=== PATIENT | female | born 1995 | race Caucasian/White ===

== ENCOUNTER → 2023-05-09 | Outpatient (CLI) | payer OTHER, SELFPAY ==
[2023-05-09 14:50] LABS: Absolute Lymphocyte Count 1.85 X10^3/uL (0.83-4.51); Absolute Neutrophil Count 9.5 X10^3/uL (2.0-7.7); Basophil# 0.05 X10^3/uL; Basophil% 0.4 % (0-1); Eosinophil# 0.06 X10^3/uL; Eosinophils% 0.5 % (0-5); Hematocrit 36.4 % (37-47); Hemoglobin 12.4 g/dL (12.0-15.0); Lymphocyte # 1.85 X10^3/ul (0.83-4.51); Lymphocyte % 15.4 % (19-41); Mean Corp Hgb Conc 34.1 g/dL (32-36); Mean Corpuscular Hgb 30.8 pg (27.0-32.0); Mean Corpuscular Volume 90.5 fL (81-99); Mean Platelet Vol. 9.6 fl (6.2-12.0); Monocyte# 0.57 X10^3/uL; Monocyte% 4.7 % (0-10); NRBC Flagged by Analyzer 0 % (0-5); Neutrophil # 9.45 X10^3/uL (2.7-7.7); Neutrophil % 78.6 % (47-70); Platelet Count 367 K/mm3 (150-450); RBC Distribution Width CV 12.5 % (11.6-14.6); RBC Distribution Width SD 41.1 fl (35.1-43.9); Red Blood Count 4.02 M/mm3 (4.2-5.4)
[2023-05-09 16:39] LABS: HIV - WCH Non-Reactive (Nonreactive); Hepatitis B Surface Antigen Non-Reactive (Nonreactive); Hepatitis C Antibody Non-Reactive (Nonreactive); Rubella IgG Reactive (Nonreactive); Syphilis Antibodies Non-reactive
[2023-05-11 22:07] LABS: Chlamydia By Nucleic Acid AMP Negative (Negative); Gonococcus By Nucleic Acid AMP Negative (Negative)
[2023-05-12 21:01] LABS: HPV Reflexed? NOT INDICATED
== END | disposition home or self-care (01) ==
PROVIDERS: Referring Provider Obstetrics & Gynecology; Visit Provider Obstetrics & Gynecology
DX: Z34.90 Encounter for supervision of normal pregnancy, unspecified, unspecified trimester (principal)
CPT/HCPCS: 36415; 85025; 86703; 86762; 86780; 86803; 86850; 86900; 86901; 87086; 87088; 87340; 87491; 87591; 88175; G0145

== ENCOUNTER → 2023-06-28 | Outpatient (CLI) | payer OTHER, SELFPAY ==
[2023-06-28 17:32] LABS: Mucous, Urine 0 SEEN /hpf (<or=2+); Red Blood Cells-Urine 0 SEEN /hpf (0-5); White Blood Cells 0 SEEN /hpf (0-5)
[2023-06-28 18:13] LABS: Color, Urine Yellow (Yellow); Glucose, Dipstick Normal (Normal); Leukocyte Esterase-Dipstick Negative /ul (Negative); Nitrite-Dipstick Negative (Negative); Occult Blood-Urine Negative /ul (Negative); Protein-Dipstick 15 mg/dl (Negative); Urine Bilirubin Dipstick Negative (Negative); Urine Clarity Clear (Clear); Urine Urobilinogen Normal (Normal); Urine pH 6.5 (5.0 - 8.0)
[2023-06-28 18:40] LABS: Ketone-Dipstick 150 mg/dl (Negative)
[2023-06-28 18:49] LABS: Bacteria 2+ /hpf (None Seen); Squamous Epithelial Cells - UA 0-5 SEEN /hpf (5-10)
== END | disposition home or self-care (01) ==
PROVIDERS: Visit Provider Advanced Practice Midwife
DX: M54.9 Dorsalgia, unspecified (principal)
CPT/HCPCS: 81001; 87086

== ENCOUNTER 2023-06-29 18:23 | Emergency (ER) | payer OTHER, SELFPAY ==
[2023-06-29 18:26] VITALS: BP 120/79; PULSE 81; RESP 18; TEMP 36.6; O2SAT 99; BMI 26.9
--- NOTE | 2023-06-29 18:53 | ED.VIS.GI ---
HPI HPI - GI History of Present Illness Chief Complaint: Abd Pain Informant: patient and spouse/S.O. Narrative Narrative: Called today from [facility] to go to the ED for fluid hydration and work-up. Vomiting diarrhea started Tuesday diarrhea stopped Tuesday persistent vomiting. She is a G2, P1 15 weeks gestation. Abdominal cramping. No recent antibiotics. No fevers or chills. No urinary symptoms. She saw [facility] yesterday, Shirley Pérez, started on Zofran had urine tested called today having ketones and sent to the ED. She had 1 emesis today status post Zofran prior to arrival. No hematemesis no bloody stools. She reports has had intermittent nausea throughout however no significant emesis. Denies alcohol tobacco or illicit drug use. She is on vitamins and as needed Zofran at this time. Prior similar symptoms: No PFSH PFSH Medical History Family history of breast cancer Testing for genetic disease carrier status Vaginal delivery Home Medications multivit-min no.71-iron fum 28 mg-folate no.1 1 mg-dha 300 mg capsule (PNV-[place]) cap PO 04/29/23 [History Last Taken Unknown] ondansetron 4 mg disintegrating tablet 4 mg PO Q6H #14 tabs 06/28/23 [Rx Last Taken Unknown] metoclopramide HCl 5 mg tablet (Reglan) 5 mg PO Q6H PRN nausea and vomiting #10 tabs 06/29/23 [Rx Last Taken Unknown] nitrofurantoin monohydrate/macrocrystals 100 mg capsule 100 mg PO Q12 #10 CAPSULES 06/29/23 [Rx Last Taken Unknown] Allergy/AdvReac Type Severity Reaction Status Date / Time Penicillins Allergy Unknown PT UNSURE Verified 06/29/23 18:26 OF REACTION Family History Grandmother Breast cancer, Onset Age: 75 Maternal Surgical History [place] teeth extracted Social History adopted: No household members: spouse and children number of children: 1 current occupational status: 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 current occupational exposures/hazards: No pets and animals: No history of recent travel: Yes ([place]) out of state: Yes out of country: No sexually active: Yes Smoking Status: Never smoker alcohol intake: never substance use type: does not use well-balanced diet: daily or most days caffeine: Yes Type: coffee Number of servings: 1 eating out: 1-3 times/week during the past year weight has: remained stable what type of physical activity do you participate in: walking, yoga and other details: Moderate FELIPE frequency: 3-4 times per week duration: 15-30 minutes/day fito/druze: Scientologist seatbelt use: always do you feel safe at home: Yes additional social history: Noel- ROS ROS ED Constitutional Constitutional ED: Denies chills, fever(s) or sweats Eyes Eyes: Denies change in vision ENT ENT ED: Denies dysphagia or sore throat Cardiovascular Cardiovascular: Denies chest pain, leg edema, palpitations or racing heartbeat Respiratory/Chest Respiratory/Chest: Denies cough, dyspnea or dyspnea on exertion Gastrointestinal Gastrointestinal: Reports abdominal pain, nausea and vomiting; Denies diarrhea Genitourinary Genitourinary ED: Denies dysuria, hematuria or urinary frequency Musculoskeletal Musculoskeletal: Denies back pain, extremity pain or neck pain Integumentary Denies rash or wounds Neurologic Neurologic: Denies headache(s), paresthesias or weakness EXAM Physical Exam Const Vital Signs: 06/29/23 18:26 06/29/23 19:56 06/29/23 21:00 Temperature 98 F Temperature Source Temporal Pulse Rate 81 81 72 Respiratory Rate 18 14 14 Blood Pressure 120/79 108/69 115/67 Blood Pressure Mean 92 82 83 Pulse Ox 99 100 100 Oxygen Delivery Method Room Air Room Air Room Air 06/29/23 21:36 06/29/23 22:42 Temperature 97.5 F L Temperature Source Pulse Rate 79 71 Respiratory Rate 16 14 Blood Pressure 114/64 120/63 Blood Pressure Mean 80 Pulse Ox 100 100 Oxygen Delivery Method Room Air Positive well nourished and well developed General Appearance ED: well developed and NAD HEENT HEENT Narrative: Mild dry mucosal membranes normocephalic and atraumatic Eyes PERRL, EOMs intact bilaterally and conjunctivae normal General Eye ED: Yes normal appearance of both eyes Neck no lymphadenopathy and supple General: Negative for tenderness Chest Wall Chest: Negative for tenderness Resp normal respiratory effort and normal air movement Effort and Inspection: symmetric chest movement; Negative for respiratory distress Cardio regular rate, regular rhythm and no murmurs Peripheral Pulses: pulses 2+ throughout GI GI Narrative: Gravid abdomen, mild tenderness lower abdomen there is no guarding or rebound. Negative Stevens's McBurney's tenderness. Palpation: Negative for guarding or rebound tenderness present Back/Spine no CVA tenderness and no thoracic nor lumbar tenderness Extremity normal to inspection General Extremety ED: Negative for edema or tenderness General Extremity: Negative for edema Neuro oriented x3 and no sensory deficits noted Sensorium / Orientation: awake and alert Skin no rashes or lesions noted and no wounds MDM MDM MDM Narrative Medical decision making narrative: Interventions / MDM: Differential diagnosis: Viral syndrome, hyperemesis gravidarum, Diagnosis considered but do not suspect: No clinical appendicitis or cholecystitis. Diarrhea improved, lower suspicion for C. difficile. My EKG interpretation: N/A Imaging independently reviewed and interpreted by myself: N/A External documents reviewed: N/A Test considered but not ordered:N/A ED course: Patient persistent vomiting diarrhea improved. IV established with 2 L of fluids given IV Reglan. Electrolytes evaluated creatinine 0.67 sodium 132. Urine was positive for ketones. heart tones performed and obtained on bedside ultrasound 151. There is positive movement. Clinically feeling better on reexamination. Prescription for Reglan additional Zofran to use as needed. Urine also noted leukocytes culture sent. UTI in she is started on Macrobid for 5 days. Outpatient follow-up with her OB. Return precautions. Re-evaluation: stable Disposition discussed with patient/family/significant other: Patient and significant other Case discussed with consulting clinician: N/A This note was generated with Smart Sparrow dictation software. It may contain incorrect words, spelling, and punctuation that were not noted in checking the note before signing. Lab Data Attestation: I reviewed the patient's lab results. Labs: Laboratory Results - last 24 hr 06/29/23 06/29/23 19:13 20:07 Sodium 132 L Potassium 3.6 Chloride 105 Carbon Dioxide 20.0 L Anion Gap 7 BUN 6 L Creatinine 0.60 Estim Creat Clear Calc 126.73 Est GFR (MDRD) Af Amer 155 Est GFR (MDRD) Non-Af 128 BUN/Creatinine Ratio 10.1 Glucose 98 Calcium 8.5 Urine Color Yellow Urine Clarity Clear Urine pH 6.0 Ur Specific [place] 1.020 Urine Protein 30 H Urine Glucose (UA) Normal Urine Ketones 150 A* Urine Occult Blood 10 H Urine Nitrite Negative Urine Bilirubin Negative Urine Urobilinogen 1 H Ur Leukocyte Esterase 25 H Urine RBC 0 SEEN Urine WBC 0 SEEN Ur Squamous Epith Cells 0-5 SEEN Urine Bacteria 0 SEEN Urine Mucus 0 SEEN Discharge Plan Triage Chief Complaint: Abd Pain ED Provider: Kain Champagne Dx/Rx/DC Orders Clinical Impression: UTI in , Second trimester , Nausea & vomiting, Dehydration Instructions: 2nd Trimester Changes, ED Dehydration (Adult), ED Vomiting (Adult) Prescriptions: New nitrofurantoin monohyd/m-cryst [nitrofurantoin monohyd/m-cryst] 100 mg capsule 100 mg PO Q12 Qty: 10 0RF metoclopramide HCl [Reglan] 5 mg tablet 5 mg PO Q6H PRN (Reason: nausea and vomiting) Qty: 10 0RF No Action PNV-[place] 28-1-300 mg capsule PO ondansetron 4 mg tablet,disintegrating 4 mg PO Q6H Qty: 14 0RF Primary Care Provider: Care Physician,No Primary Referrals: Care Physician,No Primary [Primary Care Provider] - Activity Restrictions/Additional Instructions: Urine with no Normal renal function. Sodium 132 potassium 3.6. You are given 2 L of IV fluids. Symptoms improved. Urine with slight infection culture sent. Take antibiotic as prescribed. Follow-up with your OB team. Return if worsening symptoms. Disposition Disposition: Home, Self Care Discharge Date/Time: 06/29/23 22:46
[2023-06-29] MEDS: 0.9% Normal Saline 1,000 ML 999 ML IV ×2 (19:13→20:31)
[2023-06-29] MEDS: Metoclopramide 10 MG/2 ML Vial 5 MG IV (19:14)
[2023-06-29 19:39] LABS: Anion Gap 7 (5-15); BUN 6 mg/dL (7-18); BUN/Creat Ratio 10.1 RATIO (10-20); Calcium,Total 8.5 mg/dL (8.5-10.1); Chloride 105 mmol/L (98-107); EST Glomerular Filtration Rate 128 mL/min (>60); Est Glom Filt Rate - Afr Amer 155 mL/min (>60); Estimated Creatinine Clearance 126.73 ml/min; Glucose 98 mg/dL (74-106); Potassium 3.6 mmol/L (3.5-5.1); Sodium Level 132 mmol/L (136-145)
[2023-06-29 19:56] VITALS: BP 108/69; PULSE 81; RESP 14; O2SAT 100
[2023-06-29 20:15] LABS: Bacteria 0 SEEN /hpf (None Seen); Mucous, Urine 0 SEEN /hpf (<or=2+); Red Blood Cells-Urine 0 SEEN /hpf (0-5); White Blood Cells 0 SEEN /hpf (0-5)
[2023-06-29 20:19] LABS: Color, Urine Yellow (Yellow); Glucose, Dipstick Normal (Normal); Leukocyte Esterase-Dipstick 25 /ul (Negative); Nitrite-Dipstick Negative (Negative); Occult Blood-Urine 10 /ul (Negative); Protein-Dipstick 30 mg/dl (Negative); Urine Bilirubin Dipstick Negative (Negative); Urine Clarity Clear (Clear); Urine Urobilinogen 1 mg/dl (Normal)
[2023-06-29 20:37] LABS: Ketone-Dipstick 150 mg/dl (Negative)
[2023-06-29 20:38] LABS: Squamous Epithelial Cells - UA 0-5 SEEN /hpf (5-10)
[2023-06-29 21:00] VITALS: BP 115/67; PULSE 72; RESP 14; O2SAT 100
[2023-06-29 21:36] VITALS: BP 114/64; PULSE 79; RESP 16; O2SAT 100
[2023-06-29 22:42] VITALS: BP 120/63; PULSE 71; RESP 14; TEMP 36.4; O2SAT 100
[2023-06-29] MEDS: Nitrofurantoin Macrocrystals 100 MG Capsule PO (22:44)
== END 2023-06-29 22:46 | disposition home or self-care (01) ==
PROVIDERS: Emergency Provider Emergency Medicine; Visit Provider Emergency Medicine
DX: O23.42 Unspecified infection of urinary tract in pregnancy, second trimester (principal); E86.0 Dehydration; O99.282 Endocrine, nutritional and metabolic diseases complicating pregnancy, second trimester; R11.2 Nausea with vomiting, unspecified; Z3A.15 15 weeks gestation of pregnancy
CPT/HCPCS: 80048; 81001; 87086; 96361; 96374; 99284; J7030; A4216

== ENCOUNTER → 2023-09-26 | Outpatient (CLI) | payer OTHER, SELFPAY ==
[2023-09-26 09:34] LABS: Absolute Lymphocyte Count 1.45 X10^3/uL (0.83-4.51); Absolute Neutrophil Count 7.5 X10^3/uL (2.0-7.7); Basophil# 0.02 X10^3/uL; Basophil% 0.2 % (0-1); Eosinophil# 0.06 X10^3/uL; Eosinophils% 0.6 % (0-5); Hematocrit 34.5 % (37-47); Hemoglobin 11.3 g/dL (12.0-15.0); Lymphocyte # 1.45 X10^3/ul (0.83-4.51); Lymphocyte % 15.1 % (19-41); Mean Corp Hgb Conc 32.8 g/dL (32-36); Mean Corpuscular Volume 94.5 fL (81-99); Monocyte# 0.53 X10^3/uL; Monocyte% 5.5 % (0-10); NRBC Flagged by Analyzer 0 % (0-5); Neutrophil # 7.49 X10^3/uL (2.7-7.7); Neutrophil % 77.9 % (47-70); Platelet Count 296 K/mm3 (150-450); RBC Distribution Width CV 12.6 % (11.6-14.6); RBC Distribution Width SD 43.9 fl (35.1-43.9); Red Blood Count 3.65 M/mm3 (4.2-5.4); White Blood Count 9.6 K/mm3 (4.4-11.0)
[2023-09-26 09:40] LABS: Glucose Challenge Gest 1H 50g 90 mg/dL (70-140)
[2023-09-26 10:36] LABS: HIV - WCH Non-Reactive (Nonreactive); Syphilis Antibodies Non-reactive
== END | disposition home or self-care (01) ==
LOC: PAVLAB 09:07
PROVIDERS: Referring Provider Registered Nurse; Visit Provider Registered Nurse
DX: O09.90 Supervision of high risk pregnancy, unspecified, unspecified trimester (principal); Z13.1 Encounter for screening for diabetes mellitus; Z3A.00 Weeks of gestation of pregnancy not specified
CPT/HCPCS: 36415; 82950; 85025; 86703; 86780

== ENCOUNTER → 2023-11-21 | Outpatient (CLI) | payer OTHER, SELFPAY ==
[2023-11-21 18:15] LABS: Group B Strep DNA By PCR Negative (Negative); Internal Control PASS; Probe Check PASS; Specimen Processing Control PASS
== END | disposition home or self-care (01) ==
PROVIDERS: Referring Provider Registered Nurse; Visit Provider Registered Nurse
DX: Z34.90 Encounter for supervision of normal pregnancy, unspecified, unspecified trimester (principal)
CPT/HCPCS: 87081; 87653

== ENCOUNTER 2023-12-15 09:15 | Inpatient (IN) | payer OTHER, SELFPAY ==
[2023-12-15] VITALS (36 sets, daily range): BP systolic 119–139; BP diastolic 58–79; PULSE 72–112; RESP 16; TEMP 36.6–37.2; O2SAT 92–100; BMI 31.6
--- NOTE | 2023-12-15 09:29 | HP.PCM.OB_ITS ---
HPI - General General Date of Admission: 12/15/23 HPI Narrative ANA HOLCOMB, is a 28 F who presents IAL 4 cm dilated regular ctx bloody show Maternal Data Information VIELKA Calculator Estimated Delivery Date Method Current WG Current Estimate 12/17/23 LMP (Certain) 39w 5d PFSH PFSH Medical History Family history of breast cancer Testing for genetic disease carrier status Vaginal delivery Home Medications multivit-min no.71-iron fum 28 mg-folate no.1 1 mg-dha 300 mg capsule (PNV- [place]) 1 cap PO 04/29/23 [History Last Taken 12/14/23 09:00 1 cap] polymyxin B sulfate 10,000 unit-trimethoprim 1 mg/mL eye drops 1 drp RIGHT EYE Q4H 12/15/23 [History Last Taken 12/15/23 07:30 1 drp] Allergy/AdvReac Type Severity Reaction Status Date / Time Penicillins Allergy Unknown PT UNSURE Verified 12/15/23 09:06 OF REACTION Family History Grandmother Breast cancer, Onset Age: 75 Maternal Surgical History [place] teeth extracted Social History adopted: No household members: spouse and children number of children: 1 current occupational status: 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 current occupational exposures/hazards: No pets and animals: No history of recent travel: Yes ([place]) out of state: Yes out of country: No sexually active: Yes Smoking Status: Never smoker alcohol intake: never substance use type: does not use well-balanced diet: daily or most days caffeine: Yes Type: coffee Number of servings: 1 eating out: 1-3 times/week during the past year weight has: remained stable what type of physical activity do you participate in: walking, yoga and other details: Moderate FELIPE frequency: 3-4 times per week duration: 15-30 minutes/day fito/restorationist: Amish seatbelt use: always do you feel safe at home: Yes additional social history: Noel- History 2 Elective abortions Hx Para 1 Spontaneous abortions Hx # Term Pregnancies Ectopic pregnancies Hx # Pregnancies Multiple births # of living children 1 Past Pregnancies Del. Date Name GA/Weeks Outcome Route Bth Weight Gen Labor Lgth Anesthesia Del Locatn Provider FOB 02/25/21 [facility] 39 live - full term 8#15oz Male epidural [facility] Trice Cohen Visit Details Expected Delivery Route/Plan Labor Preferences- CB/BF classes: No labor support person: Noel labor intervention preferences: [] pain management options preferred: limited if possible cut cord/dad catch: yes : yes PP control planned: discussed discussed possible routes of delivery and associated risks: [] special requests: [] Plans Covid status: [] Flu vaccine: given Tdap vaccine: given Rhogam: NA LARC form signed: yes Problem list reviewed and updated with the most current plan of care details and appropriate orders placed. Relevant counseling for the gestational age provided. Continue routine care and follow up unless otherwise noted in visit notes/problem list details OB Flowsheet Initial Weight: Not Recorded Date -?-?-?-?-?-?-?-?-?-?-?-?- EGA Weight BP Urine Prot -?-?-?-?-?-?-?-?-?-?-?-?- Glucose FHR FuHt Pres Dilation -?-?-?-?-?-?-?-?-?-?-?-?- Effaced St Visit Note 05/09/23 -?-?-?-?-?-?-?-?-?-?-?-?- 8w 2d 162 lb 113/63 Negative -?-?-?-?-?-?-?-?-?-?-?-?- Negative 170 -?-?-?-?-?-?-?-?-?-?-?-?- SM- CRL 2 cm con s with LMP 06/10/23 -?-?-?-?-?-?-?-?-?-?-?-?- 12w 6d 166 lb 6 oz 125/69 -?-?-?-?-?-?-?-?-?-?-?-?- 155 -?-?-?-?-?-?-?-?-?-?-?-?- LC- no vb/crampi ng. normal nob labs. declined nipt. discussed and declines afp. anatomy scheduled. 06/28/23 -?-?-?-?-?-?-?-?-?-?-?-?- 15w 3d 163 lb 115/83 115/83 Negative -?-?-?-?-?-?-?-?-?-?-?-?- Negative -?-?-?-?-?-?-?-?-?-?-?-?- KW-no vb/crampin g. FHT on handheld US. N/V/D starting on sat after possible food poisoning/Viral GI exposure. Still having N/V. Able to keep fluids down. Recommended fluids in ER in 2 days if sx persist or worsens. 07/04/23 -?-?-?-?-?-?-?-?-?-?-?-?- 16w 2d 165 lb 8 oz 116/78 Nega tive -?-?-?-?-?-?-?-?-?-?-?-?- Negative 148 -?-?-?-?-?-?-?-?-?-?-?-?- MH-No Vb. Thinks feels flutters. Feeling much improved since IV fluids last week and nausea improved. 08/05/23 -?-?-?-?-?-?-?-?-?-?-?-?- 20w 6d 173 lb 117/76 Negative -?-?-?-?-?-?-?-?-?-?-?-?- Negative 163 -?-?-?-?-?-?-?-?-?-?-?-?- JV- no lof, vagi nal bleeding, or cramping. pt has echo scheduled for small pericardial effusion. pt desires flu vaccine today. 08/29/23 -?-?-?-?-?-?-?-?-?-?-?-?- 24w 2d 181 lb 8 oz 130/78 Nega tive -?-?-?-?-?-?-?-?-?-?-?-?- Negative 155 25 -?-?-?-?-?-?-?-?-?-?-?-?- LC- no lof/vb/ct x. good fm. per pt baby with small VSD, awaiting cardiology report. 09/26/23 -?-?-?-?-?-?-?-?-?-?-?-?- 28w 2d 185 lb 2 oz 118/68 Nega tive -?-?-?-?-?-?-?-?-?-?-?-?- Negative 148 28 -?-?-?-?-?-?-?-?-?-?-?-?- MH-No Vb, LOF. G ood FM. Next echo is 10/26. Larc, tdap. Nl 28 wk labs. 10/14/23 -?-?-?-?-?-?-?-?-?-?-?-?- 30w 6d 187 lb 6 oz 114/75 Nega tive -?-?-?-?-?-?-?-?-?-?-?-?- Negative 137 32 -?-?-?-?-?-?-?-?-?-?-?-?- JV- has another follow up on 10/[address] Glass. will know for sure after this visit if can deliver in [place]. 10/24/23 -?-?-?-?-?-?-?-?-?-?-?-?- 32w 2d 189 lb 129/65 Negative -?-?-?-?-?-?-?-?-?-?-?-?- Negative 135 33 -?-?-?-?-?-?-?-?-?-?-?-?- JV- no complaint s. has appt with peds cardio on tuesday. 11/11/23 -?-?-?-?-?-?-?-?-?-?-?-?- 34w 6d 193 lb 4 oz 124/85 Nega tive -?-?-?-?-?-?-?-?-?-?-?-?- Negative 145 35 -?-?-?-?-?-?-?-?-?-?-?-?- LC- no vb/ctx/lo f. good fm. no complaints. peds without concerns for delivery at [facility]. to have f/u appt at 3months of age. 11/21/23 -?-?-?-?-?-?-?-?-?--?-?-?- 36w 2d 194 lb 115/82 Negative -?-?-?-?-?-?-?-?-?-?-?-?- Negative 135 36 -?-?-?-?-?-?-?-?-?-?-?-?- LC- no complaint s. no lof/vb/ctx. good fm. gbs obtained today. 11/28/23 -?-?-?-?-?-?-?-?-?-?-?-?- 37w 2d 193 lb 6 oz 122/85 Nega tive -?-?-?-?-?-?-?-?-?-?-?-?- Negative 145 37 Cephalic -?-?-?-?-?-?-?-?-?-?-?-?- JV- no lof, vagi nal bleeding, or dec fm. no complaints. declines exam. was 1 cm last week. 12/05/23 -?-?-?-?-?-?-?-?-?-?-?-?- 38w 2d 195 lb 2 oz 116/81 Nega tive -?-?-?-?-?-?-?-?-?-?-?-?- Negative 150 38 Cephalic 1 -?-?-?-?-?-?-?-?-?-?-?-?- 40 0 LC- no vb/ lof/ctx. good fm. no concerns. 12/12/23 -?-?-?-?-?-?-?-?-?-?-?-?- 39w 2d 195 lb 135/88 Trace -?-?-?-?-?-?-?-?-?-?-?-?- Negative 148 39 Cephalic 2 -?-?-?-?-?-?-?-?-?-?-?-?- 40 0 LC- no vb/ consistent ctx/lof. good fm. membranes swept today 12/15/23 -?-?-?-?-?-?-?-?-?-?-?-?- 39w 5d 195 lb 15.855 oz 139/79 -?-?-?-?-?-?-?-?-?-?-?-?- -?-?-?-?-?-?-?-?-?-?-?-?- NST FHR Rate Baby A Baseline: 140 Variability:: Moderate Accelerations:: 15 x 15 Decelerations:: None NST Reactive:: Yes FHR Category:: Category I Uterine Activity:: q3-5 ROS Constitutional Constitutional: Reports systems reviewed and no addt'l complaints, except as documented ENT HEENT: Reports systems reviewed and no addt'l complaints, except as documented Cardiovascular Cardiovascular: Reports systems reviewed and no addt'l complaints, except as documented Respiratory/Chest Respiratory/Chest: Reports systems reviewed and no addt'l complaints, except as documented Gastrointestinal Gastrointestinal: Reports systems reviewed and no addt'l complaints, except as documented and nausea; Denies abdominal pain Genitourinary Genitourinary: Reports systems reviewed and no addt'l complaints, except as documented, contractions Details: present and frequency (regular ) and movement Details: present Musculoskeletal Musculoskeletal: Reports systems reviewed and no addt'l complaints, except as documented Integumentary Integumentary: Reports as per HPI Neurologic Neurologic: Reports systems reviewed and no addt'l complaints, except as documented Endocrine Endocrinology: Reports systems reviewed and no addt'l complaints, except as documented Vital Signs Vital Signs Vital Signs: 12/15/23 09:22 12/15/23 09:22 12/15/23 09:24 Pulse Rate 79 78 Blood Pressure 139/79 H BP Systolic 139 BP Diastolic 79 Pulse Ox 12/15/23 09:24 12/15/23 09:24 12/15/23 09:24 Pulse Rate 85 Blood Pressure BP Systolic BP Diastolic Pulse Ox 92 100 Weight Weight: 195 lb 15.855 oz Body Mass Index (BMI) 31.6 Physical Exam Const alert, oriented x3 and healthy appearing Constitutional Narrative: uncomfortable with contractions HEENT normocephalic and moist oral mucous membranes Head and Scalp: atraumatic Neck full ROM, no lymphadenopathy, supple and thyroid normal General: trachea midline Thyroid: thyroid normal Lymph Lymphatic: no lymphadenopathy noted Chest inspection of chest normal Resp normal respiratory effort Cardio regular rate GI normal to inspection, nondistended, normoactive bowel sounds, soft to palpation and non-tender Inspection: gravid external exam normal Bimanual Exam - Vag & Uterus: uterus non-tender Manual OB Exam: estimated gestational size appropriate, presentation cephalic, dilated, effaced and station Extremity normal to inspection General Extremity: Negative for edema Skin no rashes or lesions noted Neuro deep tendon reflexes 2+ bilaterally Motor Exam: strength 5/5 throughout and clonus absent Psych mental status grossly normal Labs Labs Labs: Blood Type A POSITIVE Antibody Screen NEGATIVE Hct 37.8 % (37-47) Hgb 12.6 g/dL (12.0-15.0) Pap Smear Negative Syphilis Total Ab Non-reactive Rubella IgG Antibody Reactive (Nonreactive) Hep Bs Antigen Non-Reactive (Nonreactive) Hepatitis C Antibody Non-Reactive (Nonreactive) Chlamydia DNA (OBI) Negative (Negative) N.gonorrhoeae DNA (OBI) Negative (Negative) HIV 1&2 Antibody Non-Reactive (Nonreactive) Glucose 1 Hr 50 gm 90 mg/dL (70-140) Group B Strep DNA Negative (Negative) Assessment & Plan (1) Ventricular septal defect (VSD) of fetus affecting management of : COMMENT: small vsd with small shunting seen, no pericardial effusion, cleared for delivery in ne[place] by MF, faxed report to [facility] and was approved for delivery at [facility] (2) Nausea & vomiting: QUALIFIERS: Vomiting type: unspecified Qualified Code(s): R11.2 - Nausea with vomiting, unspecified COMMENT: improved (3) Supervision of high-risk : QUALIFIERS: Trimester: second trimester Qualified Code(s): O09.92 - Supervision of high risk , unspecified, second trimester COMMENT: PRR , VIELKA 12/17/23, PC Chivo Noel (4) : QUALIFIERS: Weeks of gestation: 39 weeks Qualified Code(s): Z3A.39 - 39 weeks gestation of COMMENT: reviewed genetic & carrier testing. GBS neg. PLAN: Plan Patient presents IAL, plan expectant management for , pitocin/AROM PRN if needed. Pain management: desires epidural. GBS neg. Management of any complications: see a/p details I have reviewed the [facility] and made any clinically relevant updates.
[2023-12-15] MEDS: Lactated Ringers 1,000 ML 200 ML IV (09:50)
[2023-12-15 09:57] LABS: Absolute Lymphocyte Count 1.64 X10^3/uL (0.83-4.51); Absolute Neutrophil Count 8.3 X10^3/uL (2.0-7.7); Basophil# 0.04 X10^3/uL; Basophil% 0.4 % (0-1); Eosinophil# 0.03 X10^3/uL; Eosinophils% 0.3 % (0-5); Hematocrit 37.8 % (37-47); Hemoglobin 12.6 g/dL (12.0-15.0); Lymphocyte # 1.64 X10^3/ul (0.83-4.51); Lymphocyte % 15.4 % (19-41); Mean Corp Hgb Conc 33.3 g/dL (32-36); Mean Corpuscular Hgb 30.7 pg (27.0-32.0); Mean Platelet Vol. 11.5 fl (6.2-12.0); Monocyte# 0.54 X10^3/uL; Monocyte% 5.1 % (0-10); NRBC Flagged by Analyzer 0 % (0-5); Neutrophil # 8.34 X10^3/uL (2.7-7.7); Neutrophil % 78.4 % (47-70); Platelet Count 331 K/mm3 (150-450); RBC Distribution Width CV 13.2 % (11.6-14.6); RBC Distribution Width SD 44.8 fl (35.1-43.9); Red Blood Count 4.11 M/mm3 (4.2-5.4); White Blood Count 10.6 K/mm3 (4.4-11.0)
[2023-12-15] MEDS: LACTATED RINGERS 500 ML 999 ML IV (10:01)
[2023-12-15] MEDS: fentaNYL 100 MCG/2 ML Ampul IV (10:01)
[2023-12-15] MEDS: Oxytocin 10 UNITS/ML Vial IM (10:32)
[2023-12-15] MEDS: Lidocaine 1% (20 ml mdv) 20 ML Vial INFILT (10:40)
--- NOTE | 2023-12-15 10:52 | EX.PCM.OBRPT ---
Assessment & Plan (1) : QUALIFIERS: Weeks of gestation: 39 weeks Qualified Code(s): Z3A.39 - 39 weeks gestation of COMMENT: reviewed genetic & carrier testing. GBS neg. (2) Supervision of high-risk : QUALIFIERS: Trimester: second trimester Qualified Code(s): O09.92 - Supervision of high risk , unspecified, second trimester COMMENT: PRR , VIELKA 12/17/23, PC Chivo Noel (3) Nausea & vomiting: QUALIFIERS: Vomiting type: unspecified Qualified Code(s): R11.2 - Nausea with vomiting, unspecified COMMENT: improved (4) Ventricular septal defect (VSD) of fetus affecting management of : COMMENT: small vsd with small shunting seen, no pericardial effusion, cleared for delivery in ne[place] by MFM, [facility] report to [facility] and was approved for delivery at [facility] Maternal Data Information VIELKA Calculator Estimated Delivery Date Method Current WG Current Estimate 12/17/23 LMP (Certain) 39w 5d Vaginal Delivery Operative Information Date of Procedure: 12/15/23 Pre-Operative Diagnosis: see a/p diagnoses Post-Operative Diagnosis: same Surgery / Procedure Performed: Spontaneous Vaginal Delivery Type of Anesthesia: Local with 1% Lidocaine Special Medications: none Estimated Blood Loss: 300 Fluids Replaced: crystalloid Findings Description of Procedure: Patient began pushing and delivered the head in the BUSTER presentation. The head was delivered atraumatically . The anterior and posterior shoulders delivered without complication followed by the rest of the and the was placed on the maternal abdomen. Delayed cord clamping was employed for approximately 60 seconds. Cord was clamped and cut and gentle traction was applied to the cord and the placenta delivered spontaneously immediately following it was noted to be intact with three-vessel cord. The perineum and vagina were inspected and noted to have a second degree perineal laceration which was repaired in the usual fashion with 3-0 vicryl rapide after injecting with lidocaine . EBL was 300. Patient and infant tolerated delivery well. Amniotic Fluid Description: Clear Placental Delivery Description: Spontaneous Placenta Disposition: [facility] Cord Vessel Description: 3 Vessels Cord Entanglement: None Delayed Cord Clamping: Yes Post Vaginal Delivery Medications Given After Delivery: IV Pitocin Episiotomy Description: None Complication Complications: None Procedures Urinary/Genital [id number]: [id number] Vaginal Delivery [facility]
--- NOTE | 2023-12-15 10:53 | PCM.DC ---
Discharge Instructions Diet Discharge Diet: No restrictions Activity Discharge Activity: Return to Normal Activity, May Not Drive (while taking narcotic pain medications.) and May Shower May resume sexual activity in: 4-6 weeks Dressing / Incision Call your doctor if your incision/area has: Continuous Slow Oozing, Sudden Increased Bleeding, Increased Pain/ Swelling, Increased Redness and Foul Smelling Discharge Follow Up Care Please Follow Up With: Sanjuanita Sánchez MD When: Call [phone] to make an appointment with your doctor in 6 weeks. If you had elevated blood pressure or 4th degree laceration, you will need to be seen in 2 weeks. Test Results: Test results from this visit will be discussed in further detail at your follow-up appointment, if applicable. Discharge Plan Admission Admit Date/Time: 12/15/23 09:15 Attending Provider: Sanjuanita Sánchez Primary Care Provider: Care Physician,Zahra Primary Discharge Orders/Prescriptions Prescriptions: No Action PNV-[place] 28-1-300 mg capsule 1 cap PO polymyxin B sulf-trimethoprim 10,000 unit- 1 mg/mL drops 1 drp RIGHT EYE Q4H Rx Instructions: while awake; do not exceed 6 doses in 24 hours Referrals / Follow Up: Care Physician,No Primary [Primary Care Provider] - Disposition Disposition (needs filled in before D/C Order can be placed): Home, Self Care
[2023-12-15 11:06] LABS: Syphilis Antibodies Non-reactive
[2023-12-15] MEDS: Acetaminophen 500 MG Tablet 1000 MG PO ×2 (12:57→22:08)
[2023-12-15] MEDS: Senna/Docusate Sodium 1 Tablet PO (15:48)
[2023-12-15] MEDS: Naproxen 500 MG Tablet PO (15:49)
[2023-12-16 00:55] VITALS: BP 113/64; PULSE 73; RESP 16; TEMP 36.7
[2023-12-16 04:59] VITALS: BP 113/63; PULSE 65; RESP 16; TEMP 36.7
[2023-12-16 07:31] VITALS: BP 116/77; PULSE 75; RESP 16; TEMP 36.1; O2SAT 98
--- NOTE | 2023-12-16 07:52 | PN.OBGYN_ITS ---
Subjective Subjective Patient doing well without complaints. Tolerating PO. Ambulating and voiding without difficulty. Feeding well. Denies chest pain, shortness of breath, calf pain/swelling, fevers, chills, lightheadedness. Objective Data Objective Data Vital Signs: Vital Signs Temp Pulse Resp BP Pulse Ox O2 Del Method 97.0 F L 75 16 116/77 98 Room Air 12/16/23 07:12/16/23 07:12/16/23 07:12/16/23 07:12/16/23 07:12/16/23 07:31 Oxygen Delivery Method Room Air Weight: 195 lb 15.855 oz Body Mass Index (BMI) 31.6 Intake & Output: Intake and Output for Last 24 Hours 12/14/23 12/15/23 12/16/23 23:59 23:59 23:59 Intake Total 452.92 / 452.92 Output Total 500 / 500 Balance -47.08 / -47.08 Lab / Micro Data Attestation: I reviewed the patient's lab results. 12/15/23 09:45 Labs: Laboratory Results - last 24 hr 12/15/23 09:45: WBC 10.6, RBC 4.11 L, Hgb 12.6, Hct 37.8, MCV 92.0, MCH 30.7, MCHC 33.3, RDW Std Deviation 44.8 H, RDW Coeff of Klaudia 13.2, Plt Count 331, MPV 11.5, Immature Gran % (Auto) 0.400, Neut % (Auto) 78.4 H, Lymph % (Auto) 15.4 L, [place] % (Auto) 5.1, Eos % (Auto) 0.3, Baso % (Auto) 0.4, Absolute Neuts (auto) 8.3 H, Absolute Lymphs (auto) 1.64, Nucleated RBC % 0 12/15/23 09:50: Syphilis Total Ab Non-reactive, Blood Type A POSITIVE, Antibody Screen NEGATIVE ROS Constitutional Constitutional: Reports systems reviewed and no addt'l complaints, except as documented; Denies anorexia or headache(s) Cardiovascular Cardiovascular: Reports systems reviewed and no addt'l complaints, except as documented; Denies dizziness, dyspnea, nausea or tachypnea Respiratory/Chest Respiratory/Chest: Reports systems reviewed and no addt'l complaints, except as documented; Denies cough, dyspnea, shortness of breath at rest or tachypnea Gastrointestinal Gastrointestinal: Reports systems reviewed and no addt'l complaints, except as documented; Denies abdominal pain, constipation or nausea Genitourinary Genitourinary: Reports systems reviewed and no addt'l complaints, except as documented; Denies burning urination, difficulty urinating, dysuria, urinary frequency or urinary incontinence Musculoskeletal Musculoskeletal: Reports systems reviewed and no addt'l complaints, except as documented Integumentary Integumentary: Reports systems reviewed and no addt'l complaints, except as documented Neurologic Neurologic: Reports systems reviewed and no addt'l complaints, except as documented; Denies abnormal speech, dizziness or headache(s) Psychiatric Psychiatric: Reports systems reviewed and no addt'l complaints, except as documented Endocrine Endocrinology: Reports systems reviewed and no addt'l complaints, except as documented Hematologic/Lymphatic Hematologic/Lymphatic: Reports systems reviewed and no addt'l complaints, except as documented Physical Exam Const alert, oriented x3 and no apparent distress Neck full ROM Resp normal respiratory effort, normal air movement and no retractions Effort and Inspection: able to speak in complete sentences and symmetric chest movement GI soft to palpation Bladder / Kidney Exam: bladder normal to palpation Uterus Palpation: uterus fundus firm Extremity normal to inspection and full ROM Psych mental status grossly normal, thought process normal and cooperative Assessment & Plan (1) Vaginal delivery: COMMENT: SM girl dean 39 precipitous PLAN: s/p PPD # 1 1. routine post delivery care 2. breast feeding- support given 3. rh positive 4. rubella immune 5. Discharge home Charges/Coding Multi Select Codes Urinary/Genital Urinary/Genital CPT Codes: No Charge
--- NOTE | 2023-12-16 07:54 | DCINST_ITS ---
Discharge Instructions Diet Discharge Diet: No restrictions Activity May resume sexual activity in: 4-6 weeks Dressing / Incision Call your doctor if your incision/area has: Continuous Slow Oozing, Sudden Increased Bleeding, Increased Pain/ Swelling, Increased Redness and Foul Smelling Discharge Follow Up Care Please Follow Up With: Sanjuanita Sánchez MD Test Results: Test results from this visit will be discussed in further detail at your follow- up appointment, if applicable. Discharge Plan Admission Admit Date/Time: 12/15/23 09:15 Attending Provider: Sanjuanita Sánchez Primary Care Provider: Care Physician,Zahra Primary Discharge Orders/Prescriptions Prescriptions: No Action PNV-[place] 28-1-300 mg capsule 1 cap PO polymyxin B sulf-trimethoprim 10,000 unit- 1 mg/mL drops 1 drp RIGHT EYE Q4H Rx Instructions: while awake; do not exceed 6 doses in 24 hours Referrals / Follow Up: Care Physician,No Primary [Primary Care Provider] - Disposition Disposition (needs filled in before D/C Order can be placed): Home, Self Care
[2023-12-16] MEDS: Senna/Docusate Sodium 1 Tablet PO (11:00)
[2023-12-16] MEDS: Acetaminophen 500 MG Tablet 1000 MG PO (12:00)
[2023-12-16 12:02] VITALS: BP 104/67; PULSE 75; RESP 16; TEMP 36.5; O2SAT 97
== END 2023-12-16 12:50 | disposition home or self-care (01) | DRG 806 ==
LOC: WPOUT 09:15 → WP 09:15
PROVIDERS: Admitting Provider Obstetrics & Gynecology; Referring Provider Obstetrics & Gynecology; Visit Provider Obstetrics & Gynecology
DX: O99.892 Other specified diseases and conditions complicating childbirth (principal); Z37.0 Single live birth; Q21.0 Ventricular septal defect; O70.1 Second degree perineal laceration during delivery; Z3A.39 39 weeks gestation of pregnancy; Z80.3 Family history of malignant neoplasm of breast
CPT/HCPCS: 59025; 59050; 85025; 86780; 86850; 86900; 86901; 99221; J7120; G0378